=== PATIENT | female | born 1990 | race Caucasian/White ===

== ENCOUNTER 2021-06-17 18:56 | Outpatient (CLI) | payer OTHER | END 2021-06-17 20:54 | disposition home or self-care (01) | LOC: GENOP 18:56 | DX: O99.891 Other specified diseases and conditions complicating pregnancy (principal); R10.32 Left lower quadrant pain; R00.2 Palpitations; O24.410 Gestational diabetes mellitus in pregnancy, diet controlled; Z3A.21 21 weeks gestation of pregnancy | CPT/HCPCS: G0463 ==

== ENCOUNTER 2021-07-09 09:46 | Outpatient (CLI) | payer OTHER | END 2021-07-09 12:20 | disposition home or self-care (01) | LOC: GENOP 09:46 | DX: O26.852 Spotting complicating pregnancy, second trimester (principal); O99.891 Other specified diseases and conditions complicating pregnancy; R10.9 Unspecified abdominal pain; Z3A.20 20 weeks gestation of pregnancy | CPT/HCPCS: G0463 ==

== ENCOUNTER 2021-08-09 20:31 | Outpatient (CLI) | payer OTHER | END 2021-08-09 22:10 | disposition home or self-care (01) | LOC: GENOP 20:31 | DX: O99.891 Other specified diseases and conditions complicating pregnancy (principal); N89.8 Other specified noninflammatory disorders of vagina; M54.9 Dorsalgia, unspecified; M25.559 Pain in unspecified hip; O99.283 Endocrine, nutritional and metabolic diseases complicating pregnancy, third trimester; E28.2 Polycystic ovarian syndrome; O99.343 Other mental disorders complicating pregnancy, third trimester; F41.9 Anxiety disorder, unspecified; Z3A.28 28 weeks gestation of pregnancy | CPT/HCPCS: 81001; 83518; G0463 ==

== ENCOUNTER 2021-09-02 16:29 | Outpatient (CLI) | payer OTHER | END 2021-09-02 18:15 | disposition home or self-care (01) | LOC: GENOP 16:29 | DX: O47.03 False labor before 37 completed weeks of gestation, third trimester (principal); Z3A.31 31 weeks gestation of pregnancy; O42.913 Preterm premature rupture of membranes, unspecified as to length of time between rupture and onset of labor, third trimester; O99.343 Other mental disorders complicating pregnancy, third trimester; F41.9 Anxiety disorder, unspecified; O99.283 Endocrine, nutritional and metabolic diseases complicating pregnancy, third trimester; E28.2 Polycystic ovarian syndrome | CPT/HCPCS: 81001; 82962; 83518; G0463 ==

== ENCOUNTER 2021-09-26 03:12 | Outpatient (CLI) | payer OTHER ==
[2021-09-26] MEDS ORDERED: MACROBID 100 M100 MG PO ×2 (11:50→11:51)
== END 2021-09-26 12:34 | disposition home or self-care (01) ==
LOC: GENOP 03:12
DX: O23.593 Infection of other part of genital tract in pregnancy, third trimester (principal); O47.03 False labor before 37 completed weeks of gestation, third trimester; O24.414 Gestational diabetes mellitus in pregnancy, insulin controlled; Z3A.35 35 weeks gestation of pregnancy
CPT/HCPCS: 59025; 81001; 87086; 96372; J0696

== ENCOUNTER 2021-10-09 05:34 | Inpatient (IN) | payer OTHER ==
[~2021-10-09] VITALS: Ht 170.2 cm; Wt 110.7 kg
[~2021-10-09 05:34] MED LIST: MACROBID 100 M100 MG PO
[2021-10-09] MEDS ORDERED: HUMULIN R100 UNIT/1 SC ×3 (06:29→06:31)
[2021-10-09] MEDS ORDERED: GLUCOPHAGE XR500 M1 PO (06:32)
[2021-10-09] MEDS ORDERED: PRENATAL VITAM1 EAC8 PO (06:32)
[2021-10-09] MEDS ORDERED: NOVOLIN N100 UNIT/1 SC ×2 (06:33→06:34)
[2021-10-09 07:42] LABS: HEMOGLOBIN 11.2 gm/dl (12.3-15.3); RED BLOOD COUNT 3.81 M/UL (4.00-5.10)
[2021-10-09 07:52] LABS: BUN/CREATININE RATIO 14 (0-10)
[2021-10-09] MEDS ORDERED: HYDROCODON-ACE1 EAC4 PO (08:40)
[2021-10-09] MEDS ORDERED: IBUPROFEN600 MG PO (08:40)
[2021-10-09] MEDS ORDERED: DOCUSATE SODIU100 MG PO (08:40)
[2021-10-10 02:20] LABS: HEMOGLOBIN 10.6 gm/dl (12.3-15.3)
== END 2021-10-11 15:18 | disposition home or self-care (01) | DRG 788 ==
LOC: OB 05:34
PROVIDERS: ADMIT Obstetrics & Gynecology
PROC: 4A1HXCZ Monitoring of Products of Conception, Cardiac Rate, External Approach (ICD-10-PCS; 2021-10-09)
PROC: 3E02340 Introduction of Influenza Vaccine into Muscle, Percutaneous Approach (ICD-10-PCS; 2021-10-09)
PROC: 10D00Z1 Extraction of Products of Conception, Low, Open Approach (ICD-10-PCS; principal; 2021-10-09 07:30)
DX: O24.424 Gestational diabetes mellitus in childbirth, insulin controlled (principal); Z20.822 Contact with and (suspected) exposure to COVID-19; O36.63X0 Maternal care for excessive fetal growth, third trimester, not applicable or unspecified; Z3A.37 37 weeks gestation of pregnancy; Z37.0 Single live birth; O99.344 Other mental disorders complicating childbirth; F41.9 Anxiety disorder, unspecified; Z23 Encounter for immunization; Z90.49 Acquired absence of other specified parts of digestive tract; Z79.4 Long term (current) use of insulin
CPT/HCPCS: 36415; 80053; 81001; 82800; 85014; 85018; 85025; 90471; 90686; 90715; C9113; G0008; J0690; J1170; J2250; J2405; J2550; J2590; J3010; J7030; J7120; U0002

== ENCOUNTER → 2022-03-31 | Outpatient (CLI) | payer OTHER ==
[~2022-03-31] MED LIST changes: +DOCUSATE SODIU100 MG PO; +GLUCOPHAGE XR500 M1 PO; +HUMULIN R100 UNIT/1 SC; +HYDROCODON-ACE1 EAC4 PO; +IBUPROFEN600 MG PO; +NOVOLIN N100 UNIT/1 SC; +PRENATAL VITAM1 EAC8 PO
== END ==
LOC: LAB 10:21
DX: Z32.00 Encounter for pregnancy test, result unknown (principal)
CPT/HCPCS: 36415; 84702

== ENCOUNTER → 2022-07-31 | Outpatient (CLI) | payer OTHER | LOC: HEART 5 11:17 | DX: R00.2 Palpitations (principal) ==

== ENCOUNTER 2022-08-09 21:58 | Outpatient (CLI) | payer OTHER | END 2022-08-09 23:01 | disposition home or self-care (01) | LOC: GENOP 21:58 | DX: O99.891 Other specified diseases and conditions complicating pregnancy (principal); N23 Unspecified renal colic; O24.414 Gestational diabetes mellitus in pregnancy, insulin controlled; Z3A.23 23 weeks gestation of pregnancy | CPT/HCPCS: G0463 ==